=== PATIENT | female | born 1995 | race Caucasian/White ===

== ENCOUNTER 2017-10-30 10:57 | Emergency (ER) | payer MEDICAID ==
--- NOTE | 2017-10-30 11:08 | EDM.PDOC ---
ED HPI GENERAL MEDICAL PROBLEM - General Chief Complaint: ENT Problem Stated Complaint: PAIN, CANNOT HEAR, LEFT EAR Time Seen by Provider: 10/30/17 11:07 Source of Information: Reports: Patient, RN, RN Notes Reviewed History Limitations: Reports: No Limitations - History of Present Illness INITIAL COMMENTS - FREE TEXT/NARRATIVE: C/O onset of left ear pain yesterday. Last evening pt began to have a small amount of yellowish drainage from the left ear as well. Today the pain was worse and her hearing is "muffled". Denies fever or chills, nasal congestion, sinus pain or pressure, headache, cough, or injury to the affected ear. Admits to mild sore throat about 3 or 4 days ago, but it went away without treatment. Onset: Gradual Onset Date: 10/29/17 Duration: Constant Location: Reports: Other (left ear) Quality: Reports: Ache Severity: Moderate Improves with: Reports: None Worsens with: Reports: None Associated Symptoms: Reports: No Other Symptoms Left Ear Pain Score (Numeric/FACES): 6 - Related Data Allergies Allergy/AdvReac Type Severity Reaction Status Date / Time Penicillins Allergy Cannot Verified 07/15/16 17:57 Remember Home Meds: Home Meds Pnv95/Iron Fum/Folic Acid [ Caplet] 1 tab PO DAILY 07/15/16 [History] Past Medical History - Past Health History Medical/Surgical History: Denies Medical/Surgical History HEENT History: Reports: Other (See Below) Other HEENT History: Had laser surgery on left eye as a child [employer]ATOR History: Reports: , Spontaneous Social & Family History - Family History Family Medical History: Noncontributory - Tobacco Use Smoking Status *Q: Current Every Day Smoker Years of Tobacco use: 11 Packs/Tins Daily: 0.5 Used Tobacco, but Quit: Yes Month Tobacco Last Used: march Second Hand Smoke Exposure: No - Caffeine Use Caffeine Use: Reports: None - Recreational Drug Use Recreational Drug Use: No - Living Situation & Occupation Living situation: Reports: , with Family Occupation: Unemployed ED ROS ENT - Review of Systems Review Of Systems: ROS reveals no pertinent complaints other than HPI. ED EXAM, ENT - Physical Exam Exam: See Below Exam Limited By: No Limitations General Appearance: Alert, WD/WN, No Apparent Distress Eye Exam: Bilateral Eye: Normal Inspection Ears: Normal External Exam, Canal Discharge (left, yellowish), Canal Swelling ( slight, left ), TM Bulging (left), TM Dullness (left), TM Erythema (left), Other (Rt canal and TM normal to exam). No: Mastoid Swelling, Mastoid Tenderness, Canal Blood, TM Perforation Nose: Normal Inspection, Normal Mucousa, No Blood Mouth/Throat: Normal Inspection, Normal Gums, Normal Lips, Normal Oropharynx, Normal Teeth Head: Atraumatic, Normocephalic Neck: Normal Inspection, Supple, Non-Tender, Full Range of Motion. No: Lymphadenopathy (L), Lymphadenopathy (R) Respiratory/Chest: No Respiratory Distress, Lungs Clear, Normal Breath Sounds, No Accessory Muscle Use, Chest Non-Tender Cardiovascular: Regular Rate, Rhythm Neurological: Alert, Oriented, Normal Cognition, Normal Gait, No Motor/Sensory Deficits Psychiatric: Normal Affect, Normal Mood Skin: Warm, Dry, Intact, Normal Color, No Rash Course - Vital Signs Last Recorded V/S: Last Vital Signs Temp 36.9 C 10/30/17 11:16 Pulse 94 10/30/17 11:16 Resp 16 10/30/17 11:16 BP 116/67 10/30/17 11:16 Pulse Ox 100 10/30/17 11:16 Departure - Departure Time of Disposition: 11:46 Disposition: Home, Self-Care 01 Condition: Good Clinical Impression: Otitis media Qualifiers: Otitis media type: suppurative Chronicity: acute Laterality: left Recurrence: not specified as recurrent Spontaneous tympanic membrane rupture: without spontaneous rupture Qualified Code(s): H66.002 - Acute suppurative otitis media without spontaneous rupture of ear drum, left ear Otitis externa Qualifiers: Otitis externa type: other infective Chronicity: acute Laterality: left Qualified Code(s): H60.392 - Other infective otitis externa, left ear - Discharge Information Instructions: Otitis Externa, [id number], Otitis Media, Adult, [id number] Forms: ED Department Discharge Additional Instructions: Rx: Doxycycline 100mg Rx: Cortisporin ear drops May use Acetaminophen (Tylenol) and/or Ibuprofen (Motrin/Advil) as needed for fever or pain. Follow package label for dosage and precautions. Follow up in clinic if not improving in 3 days.
[2017-10-30 11:17] VITALS: BP 116/67
== END 2017-10-30 11:55 | disposition home or self-care (01) ==
LOC: DL.ED 10:57
DX: H66.002 Acute suppurative otitis media without spontaneous rupture of ear drum, left ear (principal); H60.392 Other infective otitis externa, left ear; F17.210 Nicotine dependence, cigarettes, uncomplicated
CPT/HCPCS: 99282